=== PATIENT | female | born 1970 | race Caucasian/White ===

== ENCOUNTER 2017-09-04 19:24 | Emergency (ER) | payer SELFPAY ==
[~2017-09-04] VITALS: Ht 152.4 cm; Wt 65.1 kg
[~2017-09-04 19:24] MED LIST: RANI150 PO
[2017-09-04 19:45] VITALS: BP 148/86; PULSE 76; RESP 18; TEMP 98.8; O2SAT 98
[2017-09-04] MEDS ORDERED: ZANT150T2 PO (20:14)
[2017-09-04] MEDS ORDERED: PENI500T PO (20:25)
[2017-09-04] MEDS ORDERED: NAPR500T2 PO (20:25)
[2017-09-04] MEDS ORDERED: PERC5TAB12 PO (20:25)
--- NOTE | 2017-09-04 20:25 | PD ---
HPI Chief Complaint: Oral / Dental Pain or Problem Time Seen by Provider: 20:08 Travel History International Travel<30 days: No Contact w/Intl Traveler<30days: No Traveled to known affect area: No History of Present Illness HPI Is a 47-year-old woman presents to the emergency department complaining of dental pain. She has pain and tenderness in the bottom right second molar. Started a day or 2 ago. Worsening today. Severe during the day today. Some chills but no definite fevers. No history of previous similar symptoms. No insurance. Had been feeling generally well and healthy. Took ibuprofen at home without significant relief. History Past Medical History Medical History: Denies Significant Hx Tetanus Vaccination: > 5 Years Influenza Vaccination: No Menopausal: Yes : 3 Para: 2 Social History Alcohol Use: Yes (TWICE A WEEK) Tobacco Use: Yes (1 PPD) Allergies-Medications (Allergen,Severity, Reaction): Coded Allergies: No Known Allergies (Unverified Adverse Reaction, Unknown, 09/04/17) Reported Meds & Prescriptions Reported Meds & Active Scripts Active Reported Zantac (Ranitidine HCl) 150 Mg Tab 150 Mg PO BID Review of Systems Except as stated in HPI: all other systems reviewed are Neg Physical Exam Narrative GENERAL: Well-appearing 47-year-old woman, no acute distress per SKIN: Warm and dry. CARDIOVASCULAR: Warm and well perfused. RESPIRATORY: Normal rate and effort. HEENT: No significant swelling to the face noted. On exam there is a couple teeth that are pretty decayed. On the bottom right second molar there is significant decay and tenderness to percussion. No abscess or purulent drainage. NEUROLOGICAL: Awake and alert. No gross deficits. Data Data Last Documented VS Vital Signs Date Time Temp Pulse Resp B/P (MAP) Pulse Ox O2 Delivery O2 Flow Rate FiO2 09/04/17 19:45 98.8 76 18 148/86 (106) 98 MDM Medical Decision Making Medical Screen Exam Complete: Yes Emergency Medical Condition: Yes Differential Diagnosis Dental pain, dental infection, other Narrative Course Medical decision making very 47-year-old with dentalgia. Decayed tooth with inflammation and infection. Prescription drug monitoring system shows no recent prescriptions. Diagnosis Primary Impression: Dentalgia Additional Instructions: Take antibiotics as prescribed. Take pain medicine as prescribed. Follow-up with a dentist for further evaluation. Return to the emergency department for any worsening fevers, pain, swelling, or any other new or worsening symptoms. Med/Other Pt SpecificInfo: Prescription(s) given Scripts Oxycodone-Acetaminophen (Percocet) 5-325 mg Tab 1-2 TAB PO Q6H Y for PAIN, #12 TAB 0 Refills Prov: Oneal Ramírez MD 09/04/17 Naproxen (Naproxen) 500 Mg Tab 500 MG PO BID for 7 Days, #14 TAB 0 Refills Prov: Oneal Ramírez MD 09/04/17 Penicillin V Potassium (Penicillin V Potassium) 500 Mg Tab 500 MG PO Q8H for Infection for 7 Days, #21 TAB 0 Refills Prov: Oneal Ramírez MD 09/04/17 Disposition: 01 DISCHARGE HOME Condition: Stable Oneal Ramírez MD Sep 04, 2017 20:25
== END 2017-09-04 20:39 | disposition home or self-care (01) ==
LOC: PHEFT 19:24
DX: K08.89 Other specified disorders of teeth and supporting structures (principal); F17.200 Nicotine dependence, unspecified, uncomplicated
CPT/HCPCS: 99283

== ENCOUNTER 2017-09-09 18:06 | Emergency (ER) | payer SELFPAY ==
[~2017-09-09] VITALS: Ht 152.4 cm; Wt 63.2 kg
[~2017-09-09 18:06] MED LIST changes: +NAPR500T2 PO; +PENI500T PO; +PERC5TAB12 PO; -RANI150 PO; +ZANT150T2 PO
[2017-09-09 18:09] VITALS: BP 129/82; PULSE 92; RESP 16; TEMP 97.9; O2SAT 98
[2017-09-09] MEDS ORDERED: BENZ100 PO (19:22)
[2017-09-09] MEDS ORDERED: AZIT250T3 PO (19:22)
[2017-09-09] MEDS ORDERED: VENTAER INH (19:22)
--- NOTE | 2017-09-09 19:22 | PD ---
HPI Chief Complaint: Oral / Dental Pain or Problem Time Seen by Provider: 18:34 Travel History International Travel<30 days: No Contact w/Intl Traveler<30days: No Traveled to known affect area: No History of Present Illness HPI This is a 47-year-old female here with productive cough 3 days. She is reporting green sputum. She was recently treated for dental infection and is currently on Pen-Vee K. She is also reporting occasional wheezing. Symptom severity is moderate. No aggravating or alleviating factors. Denies chest pain or shortness of breath. PFSH Past Medical History Medical History: Denies Significant Hx Diminished Hearing: No Immunizations Current: Yes Tetanus Vaccination: Unknown Influenza Vaccination: No ?: Unknown Menopausal: Yes : 3 Para: 2 Miscarriage: 1 Tubal Ligation: Yes Past Surgical History Oral Surgery: Yes Social History Alcohol Use: Yes (TWICE A WEEK) Tobacco Use: Yes (1 PPD) Substance Use: Yes (HX OF COCAINE, DENIES AT THIS TIME. ) Allergies-Medications (Allergen,Severity, Reaction): Coded Allergies: No Known Allergies (Unverified Adverse Reaction, Unknown, 09/09/17) Reported Meds & Prescriptions Reported Meds & Active Scripts Active Percocet (Oxycodone-Acetaminophen) 5-325 mg Tab 1-2 Tab PO Q6H PRN Naproxen 500 Mg Tab 500 Mg PO BID 7 Days Penicillin V Potassium 500 Mg Tab 500 Mg PO Q8H 7 Days Reported Zantac (Ranitidine HCl) 150 Mg Tab 150 Mg PO BID Review of Systems Except as stated in HPI: all other systems reviewed are Neg General / Constitutional: No: Fever Eyes: No: Visual changes HENT: No: Headaches Cardiovascular: No: Chest Pain or Discomfort Respiratory: No: Shortness of Breath Gastrointestinal: No: Abdominal Pain Genitourinary: No: Dysuria Musculoskeletal: No: Pain Skin: No Rash Physical Exam Narrative GENERAL: Alert and well-appearing 47-year-old female SKIN: Warm and dry. HEAD: Normocephalic. EYES: No scleral icterus. No injection or drainage. NECK: Supple, trachea midline. CARDIOVASCULAR: Regular rate and rhythm without murmurs, gallops, or rubs. RESPIRATORY: Breath sounds equal bilaterally. No accessory muscle use. Rhonchorous breath sounds with faint expiratory wheezes. GASTROINTESTINAL: Abdomen soft, non-tender, nondistended. MUSCULOSKELETAL: No cyanosis, or edema. Data Data Last Documented VS Vital Signs Date Time Temp Pulse Resp B/P (MAP) Pulse Ox O2 Delivery O2 Flow Rate FiO2 09/09/17 18:09 97.9 92 16 129/82 (98) 98 MDM Medical Decision Making Medical Screen Exam Complete: Yes Emergency Medical Condition: Yes Differential Diagnosis Bronchitis, pneumonia, influenza Narrative Course 47-year-old female here with productive cough. She is a smoker. She is well- appearing. She has rhonchorous breath sounds. She will be treated with azithromycin, bronchodilator and antitussives. Diagnosis Primary Impression: Bronchitis Referrals: Primary Care Physician Departure Forms: Tests/Procedures, Work Release Enter return to work date: September 12, 2017 Additional Instructions: Medication as directed. Follow-up with your primary doctor. Return if he develop new or worsening symptoms. Scripts Benzonatate (Tessalon Perles) 100 Mg Cap 200 MG PO TID Y for COUGH, #12 CAP 0 Refills Prov: Loren Peña 09/09/17 Albuterol 18 GM Inh (Ventolin Hfa 18 GM Inh) 90 Mcg/Act Aer 2 PUFF INH Q4-6H Y for SHORTNESS OF BREATH, #1 INHALER 0 Refills Prov: Loren Peña 09/09/17 Azithromycin (Azithromycin) 250 Mg Tab 250 MG PO DIRECTED for Infection, #6 TAB 0 Refills Take 2 tabs (500 mg) on day 1 then 1 tab daily x 4 days. Prov: Loren Peña 09/09/17 Disposition: 01 DISCHARGE HOME Condition: Stable Loren Peña Sep 09, 2017 19:22
== END 2017-09-09 19:32 | disposition home or self-care (01) ==
LOC: PHEFT 18:06
DX: J40 Bronchitis, not specified as acute or chronic (principal); K04.7 Periapical abscess without sinus; F17.200 Nicotine dependence, unspecified, uncomplicated
CPT/HCPCS: 99283